=== PATIENT | female | born 1965 | race African-American/Black ===

== ENCOUNTER 2017-03-30 08:33 | Emergency (ER) | payer MEDICAID, SELFPAY ==
[2017-03-30 08:33] VITALS: BP 180/112; PULSE 79; RESP 18; TEMP 36.6; O2SAT 99; BMI 36.3
--- NOTE | 2017-03-30 08:56 | RAD_ITS ---
STUDY: X-RAY - RIGHT FOOT CLINICAL: Female, 51 years old. Pain following injury. TECHNIQUE: 3 view(s) of the foot. COMPARISON: None. FINDINGS: There is a plantar calcaneal spur. Normal visualized subtalar, talonavicular, calcaneocuboid, tarsal and tarsometatarsal articulations. There is evidence of a talar neck. Normal metatarsi. Normal metatarsophalangeal joint of the great toe. Normal tibial and fibular sesamoid bones. Normal interphalangeal joint of the great toe. Normal phalanges of the great toe. Normal second through fifth metatarsophalangeal joints. I suspect a nondisplaced avulsion fracture at the base of the middle phalanx of the fifth digit. Soft tissue swelling. Prior fixation of the distal fibular fracture. RAD/Foot min 3 Views IMPRESSION: I suspect a nondisplaced avulsion fracture at the base of the middle phalanx of the fifth toe. Electronically Signed: Jose Carlos Mcmanus MD at 9:52 EST Tel [phone], Service support ,
--- NOTE | 2017-03-30 08:57 | RAD_ITS ---
STUDY: X-RAY - RIGHT KNEE REASON FOR EXAM: Female, 51 years old. Pain following a fall. TECHNIQUE: 4 view(s) of the knee. COMPARISON: None. FINDINGS: Normal visualized distal femur. Normal visualized proximal tibia and fibula. Normal proximal tibiofibular articulation. There is mild degenerative arthrosis of the medial femorotibial compartment. There is mild degenerative arthrosis of the lateral femorotibial compartment. There is mild degenerative arthrosis of the patellofemoral articulation. The soft tissue structures are unremarkable. RAD/Knee 4 or More Views IMPRESSION: Degenerative arthrosis. Electronically Signed: Jose Carlos Mcmanus MD at 9:52 EST Tel [phone], Service support ,
--- NOTE | 2017-03-30 09:38 | ED.VISSUMM ---
- ER Visit Summary Date of Service: 03/30/17 Chief Complaint: [] History of Present Illness: The patient is a 51 F [] Physical Examination: [] Test Results: [] Emergency Department Course and Treatment: [] Treatment Plan: [] Disposition: [] Impression: [] This note was generated with [employer] dictation software. It may contain incorrect words, spelling, and punctuation that were not noted in review of the chart prior to signing ED Disposition - Plan for ED Patient: Chief Complaint: Fall Instructions: ED Fx Toe Closed Prescriptions: Naproxen [Naprosyn] 500 mg PO BID PRN #20 tablet Referrals: Vitor Hinton DO [Primary Care Provider] - 1-2 Weeks
--- NOTE | 2017-03-30 09:57 | ED.DCSUM_ITS ---
- ER Visit Summary Date of Service: 03/30/17 Chief Complaint: [] History of Present Illness: The patient is a 51 F [] Physical Examination: [] Test Results: [] Emergency Department Course and Treatment: [] Treatment Plan: [] Disposition: [] Impression: [] This note was generated with [employer] dictation software. It may contain incorrect words, spelling, and punctuation that were not noted in review of the chart prior to signing ED Disposition - Plan for ED Patient: Chief Complaint: Fall Instructions: ED Fx Toe Closed Prescriptions: Naproxen [Naprosyn] 500 mg PO BID PRN #20 tablet Referrals: Vitor Hinton DO [Primary Care Provider] - 1-2 Weeks
--- NOTE | 2017-03-30 10:00 | ED.VISSUMM ---
- ER Visit Summary Date of Service: 03/30/17 Chief Complaint: Right knee and right fifth toe pain History of Present Illness: The patient is a 51 F presenting with right knee and right fifth toe pain. She states that she fell this morning through a floor and landed on her right knee. She did not hit her head or lose consciousness. Denies back pain. Physical Examination: Mild tenderness at the base of the right fifth toe. Skin is intact. No deformity. No other foot tenderness. Mild tenderness right knee anteriorly but skin is intact and still has full range of motion. She has a superficial abrasion on the left midshaft forearm laterally but there is no bony tenderness and she has a normal distal neurovascular examination. Test Results: Right knee plain films negative for fracture. Right foot plain films revealed a nondisplaced avulsion fracture at the proximal phalange of the right fifth toe. Emergency Department Course and Treatment: He was placed in a postop shoe. Treatment Plan: Follow-up with her primary care physician. Disposition: Home in stable condition Impression: She will encounter right knee contusion, initial encounter nondisplaced closed right fifth toe fracture This note was generated with [employer] dictation software. It may contain incorrect words, spelling, and punctuation that were not noted in review of the chart prior to signing ED Disposition - Plan for ED Patient: Chief Complaint: Fall Instructions: ED Fx Toe Closed Prescriptions: Naproxen [Naprosyn] 500 mg PO BID PRN #20 tablet Referrals: Vitor Hinton DO [Primary Care Provider] - 1-2 Weeks
== END 2017-03-30 10:35 | disposition home or self-care (01) ==
LOC: ED 09:01
PROVIDERS: Emergency Provider Emergency Medicine; Family Provider Student in an Organized Health Care Education/Training Program; PCP Student in an Organized Health Care Education/Training Program
DX: S92.514A Nondisplaced fracture of proximal phalanx of right lesser toe(s), initial encounter for closed fracture (principal); S80.01XA Contusion of right knee, initial encounter; S50.812A Abrasion of left forearm, initial encounter; W13.3XXA Fall through floor, initial encounter; Y93.9 Activity, unspecified; Y92.9 Unspecified place or not applicable; Y99.9 Unspecified external cause status; I10 Essential (primary) hypertension; Z72.0 Tobacco use; Z79.899 Other long term (current) drug therapy; Z90.710 Acquired absence of both cervix and uterus
CPT/HCPCS: 73564; 73630; 99283

== ENCOUNTER 2017-05-02 10:21 | Emergency (ER) | payer MEDICAID, SELFPAY ==
[2017-05-02 10:25] VITALS: BP 195/104; PULSE 79; RESP 20; TEMP 36.6; O2SAT 100; BMI 38.9
--- NOTE | 2017-05-02 10:37 | EKG12_ITS ---
Test Reason : SOB Blood Pressure : / mmHG Vent. Rate : 074 BPM Atrial Rate : 074 BPM P-R Int : 190 ms QRS Dur : 090 ms QT Int : 426 ms P-R-T Axes : 012 019 -11 degrees QTc Int : 472 ms Normal sinus rhythm Normal ECG Confirmed by CRISTINO SOLIS, RACHEL ([id number]), editor in chief LEEROY VILLA ([id number]) on 05/03/2017 2:22:13 PM Referred By: YFN Confirmed By:RACHEL GREGG MD
--- NOTE | 2017-05-02 10:41 | ED.DCSUM_ITS ---
- ER Visit Summary Date of Service: 05/02/17 Chief Complaint: Abdominal pain History of Present Illness: The patient is a 51 F presenting with abdominal pain for approximately 1 month. She went to urgent care today and they sent her to the ED for further evaluation. She states she has had diarrhea for approximately 1 month. She states she took Imodium yesterday and diarrhea has since improved. She denies blood in her stool. She has had nausea, vomiting. She complains of epigastric abdominal pain which is worse with eating. Physical Examination: Vitals are stable. Patient is afebrile. Alert no acute distress. HEENT exam is unremarkable. Neck is supple. Lungs are clear and equal bilaterally. Heart is regular rate and rhythm. Abdomen is soft epigastric tenderness, no rebound or guarding. Extremities are unremarkable. Skin is warm and dry. No focal neurologic deficit. Remainder of exam is unremarkable. Emergency Department Course and Treatment: Patient was given a GI cocktail with improvement. CBC, chemistries unremarkable. Liver lipase are normal. Urinalysis is unremarkable. Troponin is negative. EKG is sinus rhythm rate is 74 with no acute changes. Patient is feeling improved following the GI cocktail. She is given a prescription for Pepcid. She is advised to follow-up with her primary care physician. Advised return to ED if worsening complaints. Disposition: Discharge home Impression: Abdominal pain This note was generated with [employer] dictation software. It may contain incorrect words, spelling, and punctuation that were not noted in review of the chart prior to signing ED Disposition - Plan for ED Patient: Chief Complaint: Abd Pain Instructions: ED Abdominal Pain Unkn Cause Prescriptions: Famotidine [Pepcid] 20 mg PO DAILY #30 tablet Referrals: Vitor Hinton DO [Primary Care Provider] -
--- NOTE | 2017-05-02 10:42 | NURSING ---
NO OLD EKGS
[2017-05-02] MEDS: 0.9% Normal Saline 1,000 ML 1000 ML IV (10:52)
[2017-05-02 11:08] LABS: Absolute Lymphocyte Count 1.89 X10^3/ul (0.83-4.51); Absolute Neutrophil Count 4.1 X10^3/uL (2.0-7.7); Bacteria 0 SEEN /hpf (None Seen); Basophil# 0.03 X10^3/uL; Basophil% 0.4 % (0-1); Eosinophil# 0.12 X10^3/uL; Eosinophils% 1.7 % (0-5); Hemoglobin 13.3 g/dl (12.0-15.0); Lymphocyte # 1.89 X10^3/ul (4.0); Mean Corp Hgb Conc 34.1 g/gl (32-36); Mean Corpuscular Hgb 33.5 pg (27.0-32.0); Mean Corpuscular Volume 98.2 fL (81-99); Mean Platelet Vol. 11.5 fl (6.2-12.0); Monocyte# 0.82 X10^3/uL; Monocyte% 11.7 % (0-10); Mucous, Urine 0 SEEN /hpf (<or=2+); Neutrophil # 4.13 X10^3/uL (2.7-7.7); Neutrophil % 59.1 % (47-70); Platelet Count 183 K/mm3 (150-450); RBC Distribution Width CV 12.9 % (11.6-14.6); RBC Distribution Width SD 45.1 fl (35.1-43.9); Red Blood Cells-Urine 0 SEEN /hpf (0-5); Red Blood Count 3.97 M/mm3 (4.2-5.4); White Blood Cells 0 SEEN /hpf (0-5)
[2017-05-02 11:09] LABS: POSITIVE COUNT NO; POSITIVE DIFFERENTIAL NO; POSITIVE MORPHOLOGY NO
[2017-05-02 11:10] LABS: Color, Urine Yellow (Yellow); Glucose, Dipstick Normal (Normal); Ketone-Dipstick Negative (Negative); Leukocyte Esterase-Dipstick Negative /ul (Negative); Nitrite-Dipstick Negative (Negative); Occult Blood-Urine Negative /ul (Negative); Protein-Dipstick Negative (Negative); Urine Bilirubin Dipstick Negative (Negative); Urine Clarity Clear (Clear); Urine Urobilinogen Normal (Normal); Urine pH 6.5 (5.0 - 8.0)
[2017-05-02 11:23] LABS: Squamous Epithelial Cells - UA 0-5 SEEN /hpf (5-10)
[2017-05-02 11:26] LABS: AST(SGOT) 15 U/L (15-37); Alanine Aminotransfer ALT/SGPT 17 U/L (13-56); Albumin, Serum 3.5 g/dL (3.2-5.0); Alkaline Phosphatase 91 U/L (45-117); Anion Gap 6 (5-15); BUN 10 mg/dL (7-18); Bilirubin, Direct 0.22 mg/dL (0.00-0.30); Calcium,Total 8.2 mg/dL (8.5-10.1); Chloride 105 mmol/L (98-107); Creatinine, Serum 0.91 mg/dL (0.55-1.02); EST Glomerular Filtration Rate 70 mL/min (>60); Est Glom Filt Rate - Afr Amer 84 mL/min (>60); Estimated Creatinine Clearance 78.15 ml/min; Globulin 4.5 g/dL (2.2-4.2); Glucose 83 mg/dL (74-106); Lipase 119 U/L (73-393); Potassium 3.5 mmol/L (3.5-5.1); Sodium Level 137 mmol/L (136-145)
--- NOTE | 2017-05-02 11:31 | ED.DEP ---
ED Disposition - Plan for ED Patient: Chief Complaint: Abd Pain Instructions: ED Abdominal Pain Unkn Cause Prescriptions: Famotidine [Pepcid] 20 mg PO DAILY #30 tablet Referrals: Vitor Hinton DO [Primary Care Provider] -
[2017-05-02 11:43] VITALS: BP 155/80; PULSE 80; RESP 14; O2SAT 99
== END 2017-05-02 11:44 | disposition home or self-care (01) ==
PROVIDERS: Emergency Provider Emergency Medicine; Family Provider Student in an Organized Health Care Education/Training Program; PCP Student in an Organized Health Care Education/Training Program
DX: R10.13 Epigastric pain (principal); R11.2 Nausea with vomiting, unspecified; R19.7 Diarrhea, unspecified; I10 Essential (primary) hypertension; J45.909 Unspecified asthma, uncomplicated; F41.9 Anxiety disorder, unspecified; E66.9 Obesity, unspecified; Z79.899 Other long term (current) drug therapy
CPT/HCPCS: 80048; 80076; 81001; 83690; 84484; 85025; 93005; 96360; 99283; J7030; A4216

== ENCOUNTER 2017-05-25 09:30 | Outpatient (RCR) | payer MEDICAID, SELFPAY ==
--- NOTE | 2017-04-20 16:31 | HP.PTEVAL_ITS ---
Patient's Visit Information RENEE DENT is a 51 year old F referred to Physical Therapy by Vitor WHEAT with a diagnosis of LUMBAR OA. Date of Evaluation: 04/20/17 Physical Therapist: Dasha Miller - Visit Plan Frequency: 2-3x /Week Duration: 4-6 Weeks Plan: *RECENT RIGHT 5TH DIGIT FX* AQUATIC THERAPY STARTING VERY SLOWLY FOR. POSTURE CORRECTION/STRENGTHENING, INSTRUCTION IN APPROPRIATE BODY MECHANICS AND ACTIVITY MODIFICATIONS. DLS STARTING WITH A NEUTRAL SPINE PROGRESSING ROM TOLERATED. KALI LE ROM, STRETCHING AND STRENGTHENING. HEP INSTRUCTION. 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 INVOLVES A LOT OF TWISTING AND BOUNCING. NORMALLY DOES NOT HAVE SPECIAL NEEDS CHILDREN. MISSED A WEEK OF WORK BUT BACK TO WORK NOW. Disability: NO. Present symptoms: KALI LOW BACK. PAIN IN THE RIGHT LATERAL LEG. FX OF RIGHT 5TH TOE WHICH SHE WAS IN A BOOT FOR 2.5 WEEKS. TOOK IT OFF TUESDAY (04/16/17) AND IT DOES NOT HURT IN HER SHOE. NO LITTLE TOE PAIN NOW. PATIENT ALSO HAS C/ O RIGHT KNEE PAIN. PATIENT DENIES KALI LE NUMBNESS AND TINGLING. Present since : ABOUT A MONTH AGO. Pain Scale: BACK: WORST 10/10, LEAST 3/10. RIGHT KNEE : WORST 4/10, LEAST 2/10. RIGHT LEG: WORST 2/10, LEAST 0/10. Currently: BACK: 5/10, RIGHT KNEE 3/10, RIGHT LEG 0/10. OVER-ALL, PATIENT REPORTS ALL OF HER PAIN IS GETTING BETTER. Commenced as a result of: FELL THOUGH THE FLOOR IN HER APPARTMENT BUILDING. WENT BACK TO WORK ABOUT 2 DAYS AFTER FOR 2 DAYS THEN OFF A WEEK. Symptoms at onset: RIGHT FOOT, LEG AND KNEE. BACK PAIN STARTED THE NEXT DAY. Worse: WALKING, LIFTING, CLIMBING STAIRS, DRIVING, STRETCHING, BENDING, GETTING UP TO MOVE, LYING DOWN AND REACHING. Better: SITTING, HEATING PAD,. Disturbed sleep: YES. Previous history/Previous treatment: UNREMARKABLE. PATIENT DENIES ANY PRIOR HISTORY OF BACK PROBLEMS EXCEPT THE OCCASSIONAL BACK ACHE. PATIENT REPORTS A HISTORY OF RIGHT ANKLE FRACTURE WITH ORIF 2 YEARS AGO. Coughing/sneezing/straining: NEGATIVE. Gait: PATIENT REPORTS SHE HAS TO WALK SLOW AND CAREFUL NOW. STATES SHE USE TO WALK LONG DISTANCES FOR EXERCISE. NOT USING ANY ASSISTIVE DEVICES. WALKS WITH A LIMP ON THE RIGHT LE. Difficulty initiating urinatin: NO. Accidents: FELL OVER DAUGHTER 2 YEARS AGO - SLIPPED ON WET FLOOR. Unexplained weight loss: NO. Imaging: BACK, RIGHT KNEE AND RIGHT FOOT X-RAYS. PATIENT REPORTS SHE HAS NO IDEA WHAT THE X-RAY RESULTS WERE. STATES THE DOCTOR JUST TOLD HER THAT THE FALL JUST IMFLAMMED ALL THE ARTHRITIS SHE ALREADY HAD EXCEPT SHE DID BREAK HER TOE. PMH: HTN AND CHRONIC KALI SHOULDER AND NECK PAIN INCREASED SINCE HYSTERECTOMY. LEFT ARM ABRASIONS. Recent major surgery: RIGHT ANKLE ORIF 2 YEARS AGO. AUGUST 2016 HYSTERECTOMY. - Objective Sitting Posture: POOR. Standing Posture: POOR. Lordosis: INCREASED. Lateral shift: NO. Relevant shift: NO. Active Correction of posture: WORSE. Other Observations: INDEP ANTALGIC SLOW GAIT INTO PT WITHOUT AD WITH MILD LIMP ON RIGHT LE. Motor deficit: KALI LE STRENGTH 5/5 WITH MMT EXCEPT HIPS GRADED 4/ 5. Sensory deficit: HYPERSENSATIVITY RIGHT LATERAL LEG COMPARED TO LEFT. ROM deficit: TIGHT HIP FLEXORS, HAMSTRINGS AND GASTROC SOLEUS COMPLEX'S WITH RIGHT ANKLE DYSFUNCTION FROM ORIF. Reflexes: KALI LE'S 2/3. Dural Signs: POSITIVE KALI LE DURAL SIGNS RIGHT > LEFT. Lumbar mvmt loss: flex - MOD. ext - JAIRO. R SG - MOD. L SG - MOD. PATIENT WITH C/O INCREASED PAIN WITH ROM TESTING INTO FLEX AND EXT GREATER THAN KALI SG'ING. Core strength: POOR. Palpation: TENDERNESS WITH PALPATION OF THE MID AND LOWER THORACIC SPINE AND L345 REGIONS DOWN INTO SACRAL AREA. NOT TENDER IN BUTTOCK OR HIP REGIONS. OTHER: CALLED AND SPOKE WITH ANGEL AT DR. CORONADO OFFICE TO REPORT THORACIC TENDERNESS. RECEIVED LUMBAR X-RAY RESULTS OF DEGENERATIVE CHANGES, MODERATE OSTEOPHYPE FORMATION AND NO FX'S. - Goals Goal 1:: DECREASE C/O LOW BACK AND RIGHT LE PAIN Goal Time Frame: 4-6 Weeks Goal 2:: IMPROVE BENDING, LIFTING, SITTING, STANDING, WALKING, SOCIAL LIFE, TRAVEL, SLEEP AND EMPLOYMENT/HOMEMAKING FUNCTION. Goal Time Frame: 4-6 Weeks Goal 3:: INSTRUCT IN PROPHYLAXIS Goal Time Frame: 4-6 Weeks - Rehabilitation Potential Rehabilitation Potential: Fair - Anticipated Interventions Patient/Client Instruction: Educate patient on: Condition, Plan of Care, Risk Factors, Benefits of Fitness Program For the Purpose of:: To improve self management Therapeutic Exercise to Include: Strength training, Body mechanics, Postural training, Flexibilty training, In an aquatic setting, Dynamic Lumbar Stabilization For the Purpose of:: To improve ability of physical actions for home/community/ work/leisure Thank you for the opportunity to evaluate your patient. For Medicare and Medicare HMO plans, please review the plan of care and approve it. It will need to be FAXED BACK to us at [phone] for Medicare purposes. Please let me know if there are questions or concerns regarding this plan of care. Physician Signature: Date:
--- NOTE | 2017-05-25 10:26 | HP.PTDCSUM ---
HP - PT D/C Summary It has been my pleasure to treat RENEE DENT under orders from DR.JGARRI Alexandro for the diagnosis of LUMBAR OA for a total of 9 visit(s). Discharge Date: 05/25/17 Please see the following information for a summary of their discharge status. - Subjective Subjective: PATIENT REPORTS SHE WAS ABLE TO TAKE A WALK AND DID SOME WEIGHT MACHINES AT THE [facility] THIS WEEK. REPORTS SHE IS A LOT BETTER NOW. 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 HAS A BIKE AT HOME AND DOES YOGA AT HOME TOO. AT FIRST PATIENT REPORTED FEELING 85 TO 90% BETTER THEN SHE STATED I REALLY FEEL 100% BETTER, I REALLY DO. - Pain RLE Pain Intensity (Out of 10): 0 Low Back Pain Intensity (Out of 10): 0 - Overall Improvement % Improvement: 100 - Objective Objective/Function: INDEP ANTALGIC GAIT INTO PT WITHOUT AD OR ANY DEVIATIONS NOTED. Motor deficit: KALI LE STRENGTH 5/5 WITH MMT. Sensory deficit: KALI LE LIGHT TOUCH SENSATION INTACT AND SYMMETRICAL WITHOUT REPORT OF HYPERSENSATIVITY RIGHT LATERAL LEG COMPARED TO LEFT. ROM deficit: KALI LE'S WFL AND NO C/O PAIN WITH TESTING. Reflexes: KALI LE'S 2/3. Dural Signs: NEGATIVE KALI LE DURAL SIGNS RIGHT > LEFT. Lumbar mvmt loss: flex - MIN. ext - MIN. R SG - NIL. L SG - NIL. PATIENT WITH SOME C/O INCREASED PAIN WITH ROM TESTING INTO FLEX AND EXT BUT NO GROSS DEVICATIONS NOTED. Core strength: FAIR WITH MUCH BETTER AWARENESS AND CONTROL OF POSTURE. PATIENT IS MOVING ARMS AND UPPER BODY FREELY IN CLINIC TODAY AND EVEN DOING A LITTLE DANCE WHILE HAPPILY REPORTING SHE KNEW ALL OF HER POOL EX'S FOR THE LAST THERAPIST. PATIENT COMMUNICATES A GOOD UNDERSTANDING OF ALL INSTRUCTIONS GIVEN. - Goals Goal 1:: DECREASE C/O LOW BACK AND RIGHT LE PAIN Goal 2:: IMPROVE BENDING, LIFTING, SITTING, STANDING, WALKING, SOCIAL LIFE, TRAVEL, SLEEP AND EMPLOYMENT/HOMEMAKING FUNCTION. Goal 3:: INSTRUCT IN PROPHYLAXIS - Plan Plan: D/C TO INDEP EX. PATIENT IS AGREEABLE. - D/C Information If there are questions or concerns regarding this patient's physical therapy, please feel free to call me at [phone]. Thank you for the referral of this patient. Sincerely, Dasha Miller
== END 2017-05-25 19:00 | disposition home or self-care (01) ==
LOC: PT 09:30
PROVIDERS: Family Provider Student in an Organized Health Care Education/Training Program; PCP Student in an Organized Health Care Education/Training Program; Visit Provider Student in an Organized Health Care Education/Training Program
DX: M47.816 Spondylosis without myelopathy or radiculopathy, lumbar region (principal)
CPT/HCPCS: 97113; 97162; 97530

== ENCOUNTER 2017-06-21 06:36 | Emergency (ER) | payer MEDICAID, SELFPAY ==
[2017-06-21 06:38] VITALS: BP 147/101; PULSE 84; RESP 16; TEMP 37.1; O2SAT 98; BMI 36.6
--- NOTE | 2017-06-21 06:45 | ED.VISSUMM ---
- ER Visit Summary Date of Service: 06/21/17 Chief Complaint: Left knee pain History of Present Illness: The patient is a 51 F with history of bilateral knee arthritis presents because she felt a lump behind her left knee. She had some pain and clicking in the area for the past few weeks. Over the past few days, she has noticed a small lump. She denies any change in gait. She denies any leg swelling. She has had no chest pain or shortness of breath. She denies any history of pulmonary embolus. Physical Examination: Patient does have palpable cyst in the popliteal fossa behind the knee. There is no erythema or edema. There are no palpable cords. Calves are not swollen. Pulses are normal. Extension is preserved. No gross laxity. Rest of exam unremarkable. Test Results: [] Emergency Department Course and Treatment: The patient has exam findings that are consistent with a Acosta's cyst. She has no asymmetric edema. She has no other symptoms that concern me for DVT. It is all localized in one area in the popliteal fossa. I do not feel that ultrasound is necessary. The patient be placed on a short burst of steroids. She will be given orthopedic follow-up. She will be discharged home. Treatment Plan: [] Disposition: Discharge Impression: 1. Acosta's cyst left knee This note was generated with [employer] dictation software. It may contain incorrect words, spelling, and punctuation that were not noted in review of the chart prior to signing ED Disposition - Plan for ED Patient: Chief Complaint: Wound Instructions: ED Cyst Acosta Prescriptions: Prednisone 10 mg PO UD #33 tab Referrals: Abhishek Dominique MD [STAFF PHYSICIAN] -
[2017-06-21] MEDS: predniSONE 20 MG Tablet 60 MG PO (06:53)
[2017-06-21 06:55] VITALS: BP 147/101; PULSE 84; RESP 16; O2SAT 98
== END 2017-06-21 06:56 | disposition home or self-care (01) ==
LOC: ED 06:46
PROVIDERS: Emergency Provider Emergency Medicine; Family Provider Student in an Organized Health Care Education/Training Program; PCP Student in an Organized Health Care Education/Training Program
DX: M71.22 Synovial cyst of popliteal space [Baker], left knee (principal); M17.0 Bilateral primary osteoarthritis of knee; I10 Essential (primary) hypertension; F41.9 Anxiety disorder, unspecified; Z79.899 Other long term (current) drug therapy
CPT/HCPCS: 99283

== ENCOUNTER 2019-03-01 10:58 | Emergency (ER) | payer MEDICAID, SELFPAY ==
[2019-03-01 10:59] VITALS: BP 134/83; PULSE 89; RESP 17; TEMP 36.9; O2SAT 99; BMI 42.3
--- NOTE | 2019-03-01 11:33 | ED.DCSUM_ITS ---
- ER Visit Summary Date of Service: 03/01/19 Chief Complaint: Abdominal pain History of Present Illness: The patient is a 53 F presenting with abdominal pain. She states this started on Tuesday. She complains of epigastric abdominal pain. She has associated nausea, vomiting, diarrhea. She denies blood in her stool. She also complains of dysuria. She denies fever. She was recently treated for H. pylori and finished a course of amoxicillin. She states she ate grits on [place] and since that time has had increasing pain. Denies chest pain or shortness of breath. Denies other complaints. Physical Examination: Vitals are stable. Patient is afebrile. Alert no acute distress. HEENT exam is unremarkable. Neck is supple. Lungs are clear and equal bilaterally. Heart is regular rate and rhythm. Abdomen is soft epigastric tenderness with no guarding or rebound Extremities are unremarkable. Skin is warm and dry. No focal neurologic deficit. Remainder of exam is unremarkable. Emergency Department Course and Treatment: Patient was given IV fluids, Zofran. CBC, CMP unremarkable. Liver lipase are normal. Urinalysis unremarkable. Patient was given a GI cocktail and feels much improved. She is given prescription for Pepcid and Zofran. She is advised to follow-up with her primary care physician. Advised return to ED for worsening complaints. Disposition: Discharge home Impression: Abdominal pain This note was generated with [employer] dictation software. It may contain incorrect words, spelling, and punctuation that were not noted in review of the chart prior to signing ED Disposition - Plan for ED Patient: Prescriptions: Famotidine [Pepcid] 20 mg PO BID #28 tab Transmission Status: Received by [facility]/pharmacy #[id number] Ondansetron [Zofran Odt] 4 mg PO Q8H PRN PRN #10 tab PRN Reason: Nausea Transmission Status: Received by [facility]/pharmacy #[id number] Referrals: Vitor Hinton DO [Primary Care Provider] -
[2019-03-01] MEDS: 0.9% Normal Saline 1,000 ML 1000 ML IV (11:34)
[2019-03-01] MEDS: Ondansetron 4 MG/2 ML Vial IV (11:35)
[2019-03-01 11:54] LABS: Absolute Lymphocyte Count 1.22 X10^3/uL (0.83-4.51); Absolute Neutrophil Count 5.2 X10^3/uL (2.0-7.7); Basophil# 0.04 X10^3/uL; Basophil% 0.6 % (0-1); Eosinophil# 0.05 X10^3/uL; Eosinophils% 0.7 % (0-5); Hematocrit 40.7 % (37-47); Hemoglobin 13.9 g/dL (12.0-15.0); Lymphocyte # 1.22 X10^3/ul (4.0); Lymphocyte % 17.1 % (19-41); Mean Corp Hgb Conc 34.2 g/dL (32-36); Mean Corpuscular Hgb 33.6 pg (27.0-32.0); Mean Corpuscular Volume 98.3 fL (81-99); Mean Platelet Vol. 11.2 fl (6.2-12.0); Monocyte# 0.64 X10^3/uL; NRBC Flagged by Analyzer 0 % (0-5); Neutrophil # 5.17 X10^3/uL (2.7-7.7); Neutrophil % 72.2 % (47-70); Platelet Count 217 K/mm3 (150-450); RBC Distribution Width CV 13.9 % (11.6-14.6); Red Blood Count 4.14 M/mm3 (4.2-5.4); White Blood Count 7.2 K/mm3 (4.4-11.0)
[2019-03-01 12:01] LABS: ALB/GLOB Ratio 0.9 RATIO (0.9-2.4); AST(SGOT) 15 U/L (15-37); Alanine Aminotransfer ALT/SGPT 22 U/L (13-56); Albumin, Serum 3.5 g/dL (3.2-5.0); Alkaline Phosphatase 102 U/L (45-117); Anion Gap 7 (5-15); BUN 12 mg/dL (7-18); BUN/Creat Ratio 11.9 RATIO (10-20); Calcium,Total 8.7 mg/dL (8.5-10.1); Chloride 103 mmol/L (98-107); Creatinine, Serum 1.01 mg/dL (0.55-1.02); EST Glomerular Filtration Rate 61 mL/min (>60); Est Glom Filt Rate - Afr Amer 74 mL/min (>60); Estimated Creatinine Clearance 66.47 ml/min; Globulin 4.1 g/dL (2.2-4.2); Glucose 128 mg/dL (74-106); Lipase 116 U/L (73-393); Potassium 3.2 mmol/L (3.5-5.1); Protein, Total 7.6 g/dL (6.4-8.2); Sodium Level 139 mmol/L (136-145)
[2019-03-01 12:11] LABS: Mucous, Urine 0 SEEN /hpf (<or=2+); Red Blood Cells-Urine 0 SEEN /hpf (0-5)
[2019-03-01 12:22] LABS: Color, Urine Yellow (Yellow); Glucose, Dipstick Normal (Normal); Ketone-Dipstick 5 mg/dl (Negative); Leukocyte Esterase-Dipstick 25 /ul (Negative); Nitrite-Dipstick Negative (Negative); Occult Blood-Urine Negative /ul (Negative); Protein-Dipstick Negative (Negative); Specific Gravity, Urine 1.025 (1.002-1.030); Urine Bilirubin Dipstick Negative (Negative); Urine Clarity Sl. Cloudy (Clear); Urine Urobilinogen Normal (Normal)
[2019-03-01 12:27] LABS: Bacteria RARE /hpf (None Seen); Squamous Epithelial Cells - UA 5-10 SEEN /hpf (5-10); White Blood Cells 0-5 SEEN /hpf (0-5)
[2019-03-01] MEDS: Mag Hydrox/Al Hydrox/Simeth 30 ML UDC PO (13:02)
--- NOTE | 2019-03-01 13:06 | ED.DEP ---
ED Disposition - Plan for ED Patient: Prescriptions: Famotidine [Pepcid] 20 mg PO BID #28 tablet Ondansetron [Zofran Odt] 4 mg PO Q8H PRN PRN #10 tablet PRN Reason: Nausea Referrals: Vitor Hinton DO [Primary Care Provider] -
== END 2019-03-01 13:28 | disposition home or self-care (01) ==
PROVIDERS: Emergency Provider Emergency Medicine; Family Provider Student in an Organized Health Care Education/Training Program; PCP Student in an Organized Health Care Education/Training Program
DX: R10.13 Epigastric pain (principal); R11.2 Nausea with vomiting, unspecified; R19.7 Diarrhea, unspecified; R30.0 Dysuria; K21.9 Gastro-esophageal reflux disease without esophagitis; Z72.0 Tobacco use; Z79.899 Other long term (current) drug therapy
CPT/HCPCS: 80053; 81001; 83690; 85025; 96361; 96374; 99284; J7030; A4216; J2405

== ENCOUNTER → 2019-12-17 09:17 | Emergency (ER) | payer MEDICAID, SELFPAY ==
[2019-12-17 09:18] VITALS: BP 148/101; PULSE 78; RESP 17; TEMP 36.2; O2SAT 100; BMI 39.9
--- NOTE | 2019-12-17 09:33 | ED.VIS.GEN ---
History of Present Illness Chief Complaint: General Illness Informant: Patient Narrative: Patient states that on Tuesday night she went to a constitution party. She drank a lot of beer and believes that she got a yeast infection from the yeast in the beer. She notes vaginal itching. She states that she vomited that night after the constitution party and had sore throat. She notes generalized myalgias and a decrease in her smell and taste. 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 She denies any fevers but does note a cough with mild clear phlegm (like saliva). She has a history of asthma but states she is not wheezing. Past Medical History - Allergies and Home Meds Allergies/Adverse Reactions: Allergies amlodipine Allergy (Verified 12/17/19 09:17) Swelling bupropion [From Wellbutrin] Allergy (Verified 12/17/19 09:17) Unknown Primary Care Physician: Vitor Hinton DO [Primary Care Provider] - Past Medical History: - - Asthma Surgical History: hysterectomy Smoking Status: Current every day smoker Alcohol: Occasional Drugs: None Review of Systems General: Reports: Chills, Malaise. Denies: Fever, Sweats Eyes: Denies: Visual changes - bilaterally, Diplopia ENT: Denies: Rhinorrhea, Sore throat Cardiovascular: Denies: Chest pain, Palpitations Respiratory: Reports: Cough. Denies: Dyspnea, Dyspnea on exertion Gastrointestinal: Denies: Abdominal pain, Nausea, Vomiting, Diarrhea, Melena, Hematochezia Genitourinary: Reports: - - Vaginal itching. Denies: Dysuria, Hematuria, Frequency Musculoskeletal: Reports: Myalgias. Denies: Back pain, Extremity Pain Skin: Denies: Rash, Wounds Neurological: Denies: Headache, Weakness, Numbness Physical Exam Vital Signs/Narrative: Vital Signs Temp Pulse Resp BP Pulse Ox 12/17/19 09:18 97.2 F L 78 17 148/101 H 100 Inital Vital Signs reviewed: Yes General: Well nourished, Well developed, No Acute Distress Head: Normocephalic, Atraumatic Eyes: Perrl, EOMI ENT: Moist mucous membranes, No rhinorrhea Neck: Supple, Nontender Cardiovascular: Regular rate, Regular rhythm, No murmurs Respiratory: No distress, CTA bilaterally, Chest nontender Abdomen: Soft, Nontender, Nondistended, Normal bowel sounds Back: Nontender, Normal Inspection Extremities: Nontender, No edema Skin: Normal color, No rash Neurological: Alert, Oriented x3, Cranial nerves II-XII grossly intact, Normal Strength, Normal Sensation Psychological: Normal affect, Normal Mood Diagnostic/Tx/Re-eval - Medical Decision Making She will be given a Diflucan. We will swab her for COVID-19. She is to self isolate until her results are back or cleared by health department. I will write her a note for work. Tylenol Motrin for body aches. Recommend rest and fluid hydration. ED Disposition - Plan for ED Patient: Disposition: Home or Assisted Living Diagnosis: Vaginal yeast infection, Viral syndrome Instructions: ED KIERRA VAGINITIS, ED Viral Syndrome Referrals: Vitor Hinton DO [Primary Care Provider] - As Needed
[2019-12-17] MEDS: Fluconazole 100 MG Tablet 200 MG PO (09:51)
== END | disposition home or self-care (01) ==
PROVIDERS: Emergency Provider Emergency Medicine; PCP Student in an Organized Health Care Education/Training Program
DX: B34.9 Viral infection, unspecified (principal); Z20.828 Contact with and (suspected) exposure to other viral communicable diseases; B37.3 Candidiasis of vulva and vagina; M79.10 Myalgia, unspecified site; J45.909 Unspecified asthma, uncomplicated; F17.200 Nicotine dependence, unspecified, uncomplicated; Z79.899 Other long term (current) drug therapy
CPT/HCPCS: 87635; 99282; U0003

== ENCOUNTER 2020-02-14 17:26 | Emergency (ER) | payer MEDICAID, SELFPAY ==
[2019-12-17 09:18] VITALS: BMI 39.9
[2020-02-14 17:27] VITALS: BP 134/89; PULSE 97; RESP 20; TEMP 36.9; O2SAT 96; BMI 40.8
--- NOTE | 2020-02-14 17:56 | EKG12_ITS ---
Test Reason : CP Blood Pressure : / mmHG Vent. Rate : 095 BPM Atrial Rate : 095 BPM P-R Int : 186 ms QRS Dur : 132 ms QT Int : 422 ms P-R-T Axes : 052 -10 012 degrees QTc Int : 530 ms Normal sinus rhythm Right bundle branch block Abnormal ECG Confirmed by ADELINE SOLIS, GOLDEN ([id number]), publishing editor DANAY RODRIGUEZ ([id number]) on 02/20/2020 9:44:55 A M Referred By: Confirmed By:SUMAN LR MD
--- NOTE | 2020-02-14 18:00 | RAD_ITS ---
STUDY: X-RAY CHEST REASON FOR EXAM: Female, 54 years old. CHEST TIGHTNESS, BILATERAL LEG PAIN. TECHNIQUE: Single AP portable view of the chest. COMPARISON: None. FINDINGS: The lungs are clear and expanded. There is no demonstrated pleural abnormality. Normal size heart. Normal mediastinum and abdoulaye. Normal visualized pulmonary arteries. Normal visualized aortic arch and descending thoracic aorta. Normal visualized thoracic spine. Normal visualized ribs, clavicles, and shoulders. There is no demonstrated abnormality of the visualized soft tissue structures of the upper abdomen. RAD/Chest 1 View (Portable) IMPRESSION: Normal x-ray examination of the chest. Electronically Signed: Amado Estrada MD at 18:20 EST , Service support ,
--- NOTE | 2020-02-14 18:02 | ED.VISSUMM ---
- ER Visit Summary Date of Service: 02/14/20 Chief Complaint: Chest pain History of Present Illness: The patient is a 54 F presenting with chest pain. She states that this started around 1 PM, 4 hours prior to arrival. She was at her doctor's office today for bilateral knee pain and arthritis. She mentioned to them that she was having chest pain. They called EMS for evaluation in the emergency department. She was given 4 aspirin and nitro per EMS. Following nitro her pain is now resolved. She denies shortness of breath, nausea, diaphoresis. Denies PE/DVT risk factors. Denies recent exposure to Covid. She has history of hypertension, family history of early heart disease, and smoking. Physical Examination: Vitals are stable. Patient is afebrile. Alert no acute distress. HEENT exam is unremarkable. Neck is supple. Lungs are clear and equal bilaterally. Heart is regular rate and rhythm. Abdomen is soft nontender nondistended. Extremities bilateral medial knee tenderness with active full range of motion. No calf tenderness. Skin is warm and dry. No focal neurologic deficit. Remainder of exam is unremarkable. Emergency Department Course and Treatment: Patient was given aspirin per EMS. EKG is sinus rhythm right bundle branch block rate of 95. Chest x-ray was interpreted by myself and radiology as normal x-ray examination of the chest. CBC, chemistries show potassium 2.9, glucose 146. She was given potassium oral replacement. Troponin is negative. D-dimer negative. She continues to be chest pain-free in the emergency department. Recommend admission for stress test due to multiple risk factors. Patient states she has a child at home and is unable to stay in the hospital overnight. She declined delta troponin and admission. She will sign out AGAINST MEDICAL ADVICE. She is advised risks of OH, permanent heart damage, and . Patient understands and will sign out AGAINST MEDICAL ADVICE. She will follow-up with her primary care physician. Advised return to the ED for any worsening complaints. Disposition: Left AGAINST MEDICAL ADVICE Impression: Chest pain This note was generated with [employer] dictation software. It may contain incorrect words, spelling, and punctuation that were not noted in review of the chart prior to signing ED Disposition - Plan for ED Patient: Instructions: ED Chest Pain, Uncertain Cause Referrals: Vitor Hinton DO [Primary Care Provider] -
[2020-02-14 18:21] LABS: D-Dimer Quantitative (DVT/PE) 0.31 FEU/ug/m (0.27-0.49)
[2020-02-14 18:27] LABS: Anion Gap 8 (5-15); BUN 16 mg/dL (7-18); BUN/Creat Ratio 16.3 RATIO (10-20); Calcium,Total 8.9 mg/dL (8.5-10.1); Chloride 101 mmol/L (98-107); Creatinine, Serum 0.98 mg/dL (0.55-1.02); EST Glomerular Filtration Rate 63 mL/min (>60); Est Glom Filt Rate - Afr Amer 76 mL/min (>60); Estimated Creatinine Clearance 70.18 ml/min; Glucose 146 mg/dL (74-106); Potassium 2.9 mmol/L (3.5-5.1); Sodium Level 138 mmol/L (136-145)
[2020-02-14 18:35] LABS: Absolute Lymphocyte Count 2.37 X10^3/uL (0.83-4.51); Absolute Neutrophil Count 4.9 X10^3/uL (2.0-7.7); Basophil# 0.02 X10^3/uL; Basophil% 0.2 % (0-1); Eosinophil# 0.07 X10^3/uL; Eosinophils% 0.9 % (0-5); Hematocrit 41.1 % (37-47); Hemoglobin 13.9 g/dL (12.0-15.0); Lymphocyte # 2.37 X10^3/ul (4.0); Lymphocyte % 29.2 % (19-41); Mean Corp Hgb Conc 33.8 g/dL (32-36); Mean Corpuscular Hgb 34.3 pg (27.0-32.0); Mean Corpuscular Volume 101.5 fL (81-99); Monocyte# 0.78 X10^3/uL; Monocyte% 9.6 % (0-10); NRBC Flagged by Analyzer 0 % (0-5); Neutrophil # 4.87 X10^3/uL (2.7-7.7); Neutrophil % 59.9 % (47-70); Platelet Count 249 K/mm3 (150-450); RBC Distribution Width CV 13.5 % (11.6-14.6); RBC Distribution Width SD 50.4 fl (35.1-43.9); Red Blood Count 4.05 M/mm3 (4.2-5.4); White Blood Count 8.1 K/mm3 (4.4-11.0)
[2020-02-14 18:44] VITALS: BP 136/94; PULSE 90; RESP 19; O2SAT 98
--- NOTE | 2020-02-14 19:07 | ED.DEP ---
ED Disposition - Plan for ED Patient: Instructions: ED Chest Pain, Uncertain Cause Referrals: Vitor Hinton DO [Primary Care Provider] -
[2020-02-14 19:22] VITALS: BP 137/86; PULSE 97; RESP 15; O2SAT 97
--- NOTE | 2020-02-14 19:23 | ED.RN ---
PT A+OX4 GIVEN WRITTEN AND VERBAL DISCHARGE INSTRUCTIONS. DR. COULTER AT BEDSIDE TO EDUCATED AND HAVE PT SIGN AMA FORM. THIS RN WITNESSES. PT VERBALIZES UNDERSTANDING OF D/C INSTRUCTIONS AND AMA PAPERWORK. PT DENIES ANY FURTHER QUESTIONS. PT TO FOLLOW UP WITH DR. BURTON. PT IV D/C AND COVERED WITH 2X2 GAUZE AND PAPER TAPE. PT DRESSES SELF AND AMBULATES OUT OF DEPARTMENT BY SELF.
== END 2020-02-14 19:27 | disposition left against medical advice (07) ==
LOC: ED 17:45
PROVIDERS: Emergency Provider Emergency Medicine; PCP Student in an Organized Health Care Education/Training Program
DX: R07.89 Other chest pain (principal); Z53.29 Procedure and treatment not carried out because of patient's decision for other reasons; I45.10 Unspecified right bundle-branch block; I10 Essential (primary) hypertension; K21.9 Gastro-esophageal reflux disease without esophagitis; F17.200 Nicotine dependence, unspecified, uncomplicated; Z82.49 Family history of ischemic heart disease and other diseases of the circulatory system; Z79.899 Other long term (current) drug therapy
CPT/HCPCS: 71045; 80048; 84484; 85025; 85379; 93005; 99285

== ENCOUNTER 2022-09-24 17:22 | Inpatient (IN) | payer MEDICAID, SELFPAY ==
[2022-09-24 17:24] VITALS: BP 126/94; PULSE 95; RESP 16; TEMP 36.2; O2SAT 99; BMI 33.3
--- NOTE | 2022-09-24 18:48 | EX.ED.DYSGE1 ---
HPI <CONCHA Stevens - Last Filed: 09/24/22 19:54> History of Present Illness Chief Complaint: Substance Abuse Narrative Narrative: Patient presenting today requesting to detox from alcohol. She reports that she has drank daily for the past several years. She reports that she drinks liquor and will usually pour several shots and mix it with pop and will have at least 2 or more of those per night. On the weekends she reports that she will drink at least 1 bottle of liquor, sometimes more. Also reports she will drink a few beers per day and several more on the weekend. She has never had a withdrawal seizure. She has never tried to detox before. She denies any other substance use. She last drank earlier today. PMH includes hypertension and anxiety. PFSH <CONCHA Stevens - Last Filed: 09/24/22 19:54> PFSH Medical History Alcohol abuse Allergic rhinitis Anxiety and depression Asthma HTN (hypertension) Obesity Tobacco use Home Medications citalopram 40 mg tablet 40 mg PO DAILY depression 10/14/16 [History Last Taken 02/14/20] cholecalciferol (vitamin D3) 125 mcg (5,000 unit) disintegrating tablet 5,000 unit PO DAILY supplement 05/02/17 [History Last Taken 02/14/20] alprazolam 0.5 mg tablet 0.5 mg PO BID PRN PRN Anxiety 02/14/20 [History Last Taken 02/09/20] bupropion HCl 150 mg 24 hr tablet, extended release 150 mg PO DAILY smoking 02/14/20 [History Last Taken 02/13/20] chlorthalidone 25 mg tablet 25 mg PO DAILY bp 02/14/20 [History Last Taken 02/14/20] cyclobenzaprine 10 mg tablet 10 mg PO TID PRN Spasms 02/14/20 [History Last Taken 02/13/20] diclofenac sodium 1 % topical gel 1 applic TP QHS arthritis 02/14/20 [History Last Taken 02/13/20] fexofenadine 180 mg tablet 180 mg PO DAILY allergies 02/14/20 [History Last Taken 02/13/20] valsartan 80 mg tablet 80 mg PO DAILY bp 02/14/20 [History Last Taken 02/14/20] Allergy/AdvReac Type Severity Reaction Status Date / Time amlodipine Allergy Swelling Verified 09/24/22 17:24 bupropion [From Wellbutrin] Allergy Unknown Verified 09/24/22 17:24 Family History (Updated 09/24/22 @ 21:[address] Juana Molina MD) Mother CVA (cerebral vascular accident) Heart disease Hypertension Alcoholism Sister Diabetes Alcoholism Father Alcoholism Uncle Alcoholism Surgical History (Updated 09/24/22 @ 21:[address] Junaa Molina MD) History of ankle surgery History of bilateral carpal tunnel release History of hysterectomy S/P Social History (Updated 09/24/22 @ 21:[address] Juana Molina MD) household members: other details: Lives at home, her 13 year old daughter lives with her. Smoking Status: Current every day smoker tobacco type: cigarettes Smoking packs per day: 1 Smoking cigarettes per day: 20.0 quit status: considering quitting alcohol intake: current alcohol intake frequency: 3 or more drinks per day details: Drinks at least 3 small bottles crown daily. substance use type: does not use ROS <CONCHA Stevens - Last Filed: 09/24/22 19:54> ROS ED Constitutional Constitutional ED: Denies chills or fever(s) Cardiovascular Cardiovascular: Denies chest pain Respiratory/Chest Respiratory/Chest: Denies cough or dyspnea Gastrointestinal Gastrointestinal: Denies abdominal pain, nausea or vomiting Genitourinary Genitourinary ED: Denies dysuria, hematuria or urinary urgency Musculoskeletal Musculoskeletal: Denies arthralgias or myalgias Integumentary Denies rash Neurologic Neurologic: Denies weakness Psychiatric Psychiatric: Denies anxiety, depression, suicidal ideation or suicidal thoughts EXAM <CONCHA Stevens - Last Filed: 09/24/22 19:54> Physical Exam Const Vital Signs: 09/24/22 17:24 Temperature 97.1 F L Temperature Source Temporal Pulse Rate 95 Respiratory Rate 16 Blood Pressure 126/94 H Blood Pressure Mean 104 Pulse Ox 99 Oxygen Delivery Method Room Air Positive well nourished, well developed and no apparent distress General Appearance ED: well developed HEENT Reports normocephalic and head/scalp atraumatic Mouth ED: Yes moist mucous membranes normal Eyes PERRL and EOMs intact bilaterally Neck full ROM and supple Chest Wall inspection of chest normal Resp normal respiratory effort and clear to auscultation bilaterally Cardio regular rate and regular rhythm GI soft to palpation, non-tender, non-distended and no masses Back/Spine normal ROM and normal to inspection Extremity normal to inspection and full ROM Neuro oriented x3, CN's II-XII intact bilaterally, moves all extremities, no focal motor deficits and no sensory deficits noted Sensorium / Orientation: awake and alert Psych mental status grossly normal and thought process normal Skin no rashes or lesions noted and no wounds <Dr. Roxane Ramírez DO - Last Filed: 09/24/22 23:19> Physical Exam Const Vital Signs: 09/24/22 17:24 Temperature 97.1 F L Temperature Source Temporal Pulse Rate 95 Respiratory Rate 16 Blood Pressure 126/94 H Blood Pressure Mean 104 Pulse Ox 99 Oxygen Delivery Method Room Air MDM <CONCHA Stevens - Last Filed: 09/24/22 19:54> MDM MDM Narrative Medical decision making narrative: Patient presenting today requesting to detox from alcohol. She is a daily drinker. She is unable to tell me exactly how much she drinks daily but reports that she will have several mixed drinks that have 2 or more shots of liquor inside of them daily as well as a few beers per day and will drink at least 1-2 bottles of liquor and several beers on the weekends. No history of withdrawal seizures. Last drink today. She is well-appearing and in no acute distress. She does not feel she is withdrawing at this time. I did speak with the hospitalist regarding admission and patient will be admitted in stable condition and is comfortable with plan. Lab Data Attestation: I reviewed the patient's lab results. Labs: Laboratory Results - last 24 hr 09/24/22 09/24/22 18:55 19:10 WBC 7.9 RBC 4.18 L Hgb 14.4 Hct 41.8 MCV 100.0 H MCH 34.4 H MCHC 34.4 RDW Std Deviation 49.2 H RDW Coeff of Casey 13.4 Plt Count 266 MPV 10.9 Immature Gran % (Auto) 0.100 Neut % (Auto) 52.1 Lymph % (Auto) 36.8 Vance % (Auto) 10.1 H Eos % (Auto) 0.5 Baso % (Auto) 0.4 Absolute Neuts (auto) 4.1 Absolute Lymphs (auto) 2.92 Nucleated RBC % 0 Sodium 139 Potassium 2.6 L* Chloride 102 Carbon Dioxide 27.0 Anion Gap 10 BUN 11 Creatinine 0.90 Estim Creat Clear Calc 74.68 Est GFR (MDRD) Af Amer 84 Est GFR (MDRD) Non-Af 70 BUN/Creatinine Ratio 12.3 Glucose 101 Calcium 9.9 Phosphorus 2.5 Magnesium 2.1 Total Bilirubin 0.40 AST 24 ALT 23 Alkaline Phosphatase 124 H Total Protein 8.3 H Albumin 3.9 Globulin 4.4 H Albumin/Globulin Ratio 0.9 Serum , Qual NEGATIVE Urine Opiates Screen NEGATIVE Urine Methadone Screen NEGATIVE Ur Barbiturates Screen NEGATIVE Ur Phencyclidine Scrn NEGATIVE Ur Amphetamines Screen NEGATIVE MDMA (Ecstasy) Screen POSITIVE H U Benzodiazepines Scrn NEGATIVE Urine Cocaine Screen NEGATIVE U Cannabinoids Screen NEGATIVE Ur Drug Screen Comment Ethyl Alcohol 68.0 <Dr. Roxane Ramírez, DO - Last Filed: 09/24/22 23:19> [facility] MDM Narrative Medical decision making narrative: Patient presenting today requesting to detox from alcohol. She is a daily drinker. She is unable to tell me exactly how much she drinks daily but reports that she will have several mixed drinks that have 2 or more shots of liquor inside of them daily as well as a few beers per day and will drink at least 1-2 bottles of liquor and several beers on the weekends. No history of withdrawal seizures. Last drink today. She is well-appearing and in no acute distress. She does not feel she is withdrawing at this time. I did speak with the hospitalist regarding admission and patient will be admitted in stable condition and is comfortable with plan. I have personally performed a face to face assessment of the patient and have reviewed the HEATHER Note. I performed a substantive portion of the visit including all aspects of the following. My salazar findings include: History is Patient is a 56-year-old female presenting from home for request of alcohol detox. Patient states she drinks liquor at home. She does report a history of chronic hyponatremia. She has never been through detox and has tried stopping drinking on her own but was unsuccessful which is why she came here. She has no physical complaints at this time. Her potassium today is 2.6, magnesium is added on she is given oral potassium replacement the ER. She will be admitted to our [facility] program for inpatient alcohol detox. Is agreeable with this. Other additions or changes: [None] Lab Data Labs: Laboratory Results - last 24 hr 09/24/22 09/24/22 18:55 19:10 WBC 7.9 RBC 4.18 L Hgb 14.4 Hct 41.8 MCV 100.0 H MCH 34.4 H MCHC 34.4 RDW Std Deviation 49.2 H RDW Coeff of Casey 13.4 Plt Count 266 MPV 10.9 Immature Gran % (Auto) 0.100 Neut % (Auto) 52.1 Lymph % (Auto) 36.8 Vance % (Auto) 10.1 H Eos % (Auto) 0.5 Baso % (Auto) 0.4 Absolute Neuts (auto) 4.1 Absolute Lymphs (auto) 2.92 Nucleated RBC % 0 Sodium 139 Potassium 2.6 L* Chloride 102 Carbon Dioxide 27.0 Anion Gap 10 BUN 11 Creatinine 0.90 Estim Creat Clear Calc 74.68 Est GFR (MDRD) Af Amer 84 Est GFR (MDRD) Non-Af 70 BUN/Creatinine Ratio 12.3 Glucose 101 Calcium 9.9 Phosphorus 2.5 Magnesium 2.1 Total Bilirubin 0.40 AST 24 ALT 23 Alkaline Phosphatase 124 H Total Protein 8.3 H Albumin 3.9 Globulin 4.4 H Albumin/Globulin Ratio 0.9 Serum , Qual NEGATIVE Urine Opiates Screen NEGATIVE Urine Methadone Screen NEGATIVE Ur Barbiturates Screen NEGATIVE Ur Phencyclidine Scrn NEGATIVE Ur Amphetamines Screen NEGATIVE MDMA (Ecstasy) Screen POSITIVE H U Benzodiazepines Scrn NEGATIVE Urine Cocaine Screen NEGATIVE U Cannabinoids Screen NEGATIVE Ur Drug Screen Comment Ethyl Alcohol 68.0 Discharge Plan Dx/Rx/DC Orders Clinical Impression: Desire for detoxification, Alcohol abuse, Acute hypokalemia Disposition Disposition: Acute Care Hospital [facility]
[2022-09-24 19:22] LABS: Absolute Lymphocyte Count 2.92 X10^3/uL (0.83-4.51); Absolute Neutrophil Count 4.1 X10^3/uL (2.0-7.7); Basophil# 0.03 X10^3/uL; Basophil% 0.4 % (0-1); Eosinophil# 0.04 X10^3/uL; Eosinophils% 0.5 % (0-5); Hematocrit 41.8 % (37-47); Hemoglobin 14.4 g/dL (12.0-15.0); Lymphocyte # 2.92 X10^3/ul (0.83-4.51); Lymphocyte % 36.8 % (19-41); Mean Corp Hgb Conc 34.4 g/dL (32-36); Mean Corpuscular Hgb 34.4 pg (27.0-32.0); Mean Platelet Vol. 10.9 fl (6.2-12.0); Monocyte% 10.1 % (0-10); NRBC Flagged by Analyzer 0 % (0-5); Neutrophil # 4.13 X10^3/uL (2.7-7.7); Neutrophil % 52.1 % (47-70); Platelet Count 266 K/mm3 (150-450); RBC Distribution Width CV 13.4 % (11.6-14.6); RBC Distribution Width SD 49.2 fl (35.1-43.9); Red Blood Count 4.18 M/mm3 (4.2-5.4); White Blood Count 7.9 K/mm3 (4.4-11.0)
[2022-09-24 19:30] LABS: Internal QC Validated? YES +Cl - CLEAR BKGD; Pregnancy, Serum, hCG Quali. NEGATIVE Negative
[2022-09-24 19:33] LABS: Amphetamine Urine VISTA NEGATIVE (<1000 ng/mL); Barbiturate Urine VISTA NEGATIVE (< 200 ng/mL); Benzodiazepine Urine VISTA NEGATIVE (< 200 ng/mL); Cocaine Urine VISTA NEGATIVE (< 300 ng/mL); Ecstacy Urine VISTA POSITIVE (< 500 ng/mL); Methadone Urine VISTA NEGATIVE (< 300 ng/mL); PCP Urine VISTA NEGATIVE (< 25 ng/mL); THC Urine VISTA NEGATIVE (< 50 ng/mL); Vista UDS pH Range 6
--- NOTE | 2022-09-24 19:33 | HP.PCM.HOS_ITS ---
HPI - General General Date of Admission: 09/24/22 Date of Service: 09/24/22 Chief Complaint: EtOH abuse, withdrawal, detox request. HPI Narrative The patient is 56 y/o F w/ PMHx: Asthma, Tobacco use, Obesity, HTN, Anxiety and Depression, Allergic rhinitis, EtOH abuse who presents to the [facility] ED on 09/24/22 with history of onset of acute alcohol withdrawal following her last alcohol intake earlier in the day primarily secondary to anxiety with coming in with significant strong family history of alcohol abuse with reported mild nausea, mild tremors, restlessness and tactile disturbances prompting eventual ED evaluation. She is very interested in obtaining sober status. Work-up in the ED included T98.3, heart 71, BP 136/95, respiratory rate 18, 98% on room air, CBC with WC 7.9, hemoglobin 14.4, platelet 266 without marked shift, CMP with potassium 2.6, hepatic profile with alk phos 124 otherwise not marked appearing, serum test negative, UDS with positive MDMA screen, ethyl alcohol 68. In the ED patient ministered potassium chloride 40 mill equivalent p.o. x1. [facility] Medical History Alcohol abuse Allergic rhinitis Anxiety and depression Asthma HTN (hypertension) Obesity Tobacco use Home Medications citalopram 40 mg tablet 40 mg PO DAILY depression 10/14/16 [History Last Taken 02/14/20] cholecalciferol (vitamin D3) 125 mcg (5,000 unit) disintegrating tablet 5,000 unit PO DAILY supplement 05/02/17 [History Last Taken 02/14/20] alprazolam 0.5 mg tablet 0.5 mg PO BID PRN PRN Anxiety 02/14/20 [History Last Taken 02/09/20] bupropion HCl 150 mg 24 hr tablet, extended release 150 mg PO DAILY smoking 02/14/20 [History Last Taken 02/13/20] chlorthalidone 25 mg tablet 25 mg PO DAILY bp 02/14/20 [History Last Taken 02/14/20] cyclobenzaprine 10 mg tablet 10 mg PO TID PRN Spasms 02/14/20 [History Last Taken 02/13/20] diclofenac sodium 1 % topical gel 1 applic TP QHS arthritis 02/14/20 [History Last Taken 02/13/20] fexofenadine 180 mg tablet 180 mg PO DAILY allergies 02/14/20 [History Last Taken 02/13/20] valsartan 80 mg tablet 80 mg PO DAILY bp 02/14/20 [History Last Taken 02/14/20] Allergy/AdvReac Type Severity Reaction Status Date / Time amlodipine Allergy Swelling Verified 09/24/22 17:24 bupropion [From Wellbutrin] Allergy Unknown Verified 09/24/22 17:24 Family History (Updated 09/24/22 @ 21:[address] Juana Molina MD) Mother CVA (cerebral vascular accident) Heart disease Hypertension Alcoholism Sister Diabetes Alcoholism Father Alcoholism Uncle Alcoholism Surgical History (Updated 09/24/22 @ 21:[address] Juana Molina MD) History of ankle surgery History of bilateral carpal tunnel release History of hysterectomy S/P Social History (Updated 09/24/22 @ 21:[address] Juana Molina MD) household members: other details: Lives at home, her 13 year old daughter lives with her. Smoking Status: Current every day smoker tobacco type: cigarettes Smoking packs per day: 1 Smoking cigarettes per day: 20.0 quit status: considering quitting alcohol intake: current alcohol intake frequency: 3 or more drinks per day details: Drinks at least 3 small bottles crown daily. substance use type: does not use ROS ROS Narrative Admission Review of Systems: CONSTITUTIONAL: No weight loss, fever, chills, + weakness or fatigue. HEENT: Eyes: No visual loss, blurred vision, double vision or yellow sclerae. Ears, Nose, Throat: No hearing loss, sneezing, congestion, runny nose or sore throat. SKIN: No rash or itching, lesions, wounds. CARDIOVASCULAR: No chest pain, chest pressure or chest discomfort, palpitations, edema, orthopnea, syncopal events. RESPIRATORY: No shortness of breath, cough or sputum, wheezing, hemoptysis. GASTROINTESTINAL: + anorexia, nausea. No vomiting or diarrhea, abdominal pain, melena, BRBPR. GENITOURINARY: No dysuria, frequency, urgency or retention. NEUROLOGICAL: + Mild tremors, mild tactile disturbances. No headache, dizziness, syncope, paralysis, ataxia, numbness or tingling in the extremities, focal weakness, change in bowel or bladder control, seizure. MUSCULOSKELETAL: + muscle, back pain, joint pain or stiffness. HEMATOLOGIC: No anemia, bleeding or bruising. LYMPHATICS: No enlarged nodes. No history of splenectomy. PSYCHIATRIC: + history of depression or anxiety. ENDOCRINOLOGIC: No reports of sweating, cold or heat intolerance. No polyuria or polydipsia. ALLERGIES: + history of asthma, rhinitis. Vital Signs Vital Signs Vital Signs: 09/24/22 17:24 Temperature 97.1 F L Temperature Source Temporal Pulse Rate 95 Respiratory Rate 16 Blood Pressure 126/94 H Blood Pressure Mean 104 Pulse Ox 99 Oxygen Delivery Method Room Air Weight Weight: 225 lb 3.2 oz Body Mass Index (BMI) 33.3 Physical Exam Narrative Physical Examination: General: Awake, alert, oriented x 3 and cooperative, seated upright in the ED bed, fatigued, mildly tremulous and restless. Skin: Normal color, normal turgor, no icterus, no cyanosis. HEENT: AT/NC, EOMI, PERRLA, moderately dry MM, no carotid bruits or JVD noted. Lungs: CTA bilaterally, moderate effort, mild decrease BL bases, no rales, ronchi or wheezing. Heart: Regular rate and rhythm; no gallop, rub audible. Abdomen: Soft, obese, mild generalized discomfort but no rebound or guarding and more so in the right upper quadrant/epigastric region, ND, hyperactive BS, + Appreciated mild HM. Extremities: No cyanosis, clubbing, or edema. Neurological: Patient awake, alert, oriented as noted, cognitive function intact; pupils equally reactive to light and accommodation, cranial nerves II- XII grossly normal, moving all 4 extremities, no focal deficits, strength moderately globally decreased secondary to acute presentation, mildly tremulous, mild tactile disturbances noted Psychiatric: Affect appears fatigued, no acute evidence of depressive or anxiety feelings but does have underlying history. Results Lab / Micro Data 09/24/22 19:10 09/24/22 19:10 Labs: Laboratory Results - last 24 hr 09/24/22 18:55: Urine Opiates Screen NEGATIVE, Urine Methadone Screen NEGATIVE, Ur Barbiturates Screen NEGATIVE, Ur Phencyclidine Scrn NEGATIVE, Ur Amphetamines Screen NEGATIVE, MDMA (Ecstasy) Screen POSITIVE H, U Benzodiazepines Scrn NEGATIVE, Urine Cocaine Screen NEGATIVE, U Cannabinoids Screen NEGATIVE, Ur Drug Screen Comment 09/24/22 19:10: WBC 7.9, RBC 4.18 L, Hgb 14.4, Hct 41.8, MCV 100.0 H, MCH 34.4 H , MCHC 34.4, RDW Std Deviation 49.2 H, RDW Coeff of Casey 13.4, Plt Count 266, MPV 10.9, Immature Gran % (Auto) 0.100, Neut % (Auto) 52.1, Lymph % (Auto) 36.8, [place] % (Auto) 10.1 H, Eos % (Auto) 0.5, Baso % (Auto) 0.4, Absolute Neuts (auto) 4.1, Absolute Lymphs (auto) 2.92, Nucleated RBC % 0, Serum , Qual NEGATIVE Assessment & Plan Assessment/Plan (1) Alcohol withdrawal: PLAN: Plan The patient is 56 y/o F w/ PMHx: Asthma, Tobacco use, Obesity, HTN, Anxiety and Depression, Allergic rhinitis, EtOH abuse who presents to the [facility] ED on 09/24/22 with history of onset of acute alcohol withdrawal. #1. Acute EtOH Withdrawal: Will admit to medical surgical floor, routine substance abuse admission labs obtained in the ED with noted hypokalemia with supplementation administered in the ED. Given interest in sobriety, will initiate and continue on protocol with taper course of Phenobarbital, as needed gabapentin, Catapres, Bentyl, Vistaril, IV fluids, IV antiemetics, Tylenol as needed for pain. Will consult Case management for assistance for transition to next level of rehabilitation care. Mag, phos pending. Maintain on CIWA protocol concurrently. #2. Hypokalemia: Admission K+ 2.6, magnesium level requested, supplementation given, repeat level in AM. #3. Anxiety and depression: We will continue patient home low-dose alprazolam and citalopram home regimen. Given history certainly would benefit from altered regimen and avoidance of benzodiazepines but this would need to be tapered outpatient. Additionally would benefit from aggressive counseling as likely contributing to her substance abuse. #4. Hypertension: Continue home regimen including valsartan, chlorthalidone, PRN hydralazine. #5. Obesity: Weight loss and lifestyle changes encouraged. #6. Allergic rhinitis: We will continue patient on fexofenadine regimen. #7. Tobacco Abuse: Encouraged cessation, inpatient consultation per RT, NR if desired. Patient is interested in complete tobacco cessation and would like nicotine replacement at her discharge. #8. Chronic asthma: We will maintain on ATC budesonide therapy, as needed albuterol, encourage tobacco cessation. #9. DVT prophylaxis: Low risk. Charges/Coding Visit Charges Inpatient E&M: 00502 Init Hosp L2
[2022-09-24 19:59] LABS: ALB/GLOB Ratio 0.9 RATIO (0.9-2.4); AST(SGOT) 24 U/L (15-37); Alanine Aminotransfer ALT/SGPT 23 U/L (13-56); Albumin, Serum 3.9 g/dL (3.2-5.0); Alkaline Phosphatase 124 U/L (45-117); Anion Gap 10 (5-15); BUN 11 mg/dL (7-18); BUN/Creat Ratio 12.3 RATIO (10-20); Calcium,Total 9.9 mg/dL (8.5-10.1); Chloride 102 mmol/L (98-107); EST Glomerular Filtration Rate 70 mL/min (>60); Est Glom Filt Rate - Afr Amer 84 mL/min (>60); Estimated Creatinine Clearance 74.68 ml/min; Globulin 4.4 g/dL (2.2-4.2); Glucose 101 mg/dL (74-106); Potassium 2.6 mmol/L (3.5-5.1); Protein, Total 8.3 g/dL (6.4-8.2); Sodium Level 139 mmol/L (136-145)
[2022-09-24 20:16] LABS: Magnesium 2.1 mg/dL (1.6-2.6); Phosphorus 2.5 mg/dL (2.5-4.9)
[2022-09-24] MEDS: Potassium Chloride Oral Tablet 20 MEQ 40 MEQ PO (20:16)
[2022-09-24 20:27] VITALS: BP 136/95; PULSE 71; RESP 18; TEMP 36.8; O2SAT 98
[2022-09-24] MEDS: Phenobarbital 32.4 MG Tablet 64.8 MG PO (21:43)
--- NOTE | 2022-09-24 21:47 | CM.ED ---
Social Work SW introduced self and role to patient. Pt is requesting to detox from alcohol. Pt expressed feeling anxious and asked questions about the process. Pt reports she has been drinking for many years and has never detoxed before. SW provided emotional support. Treatment navigator notified of patient's admission. Rosmery Chun ATMOSPHERIC SCIENTIST, [employer] G[employer] SUPERINTENDENT
[2022-09-24 23:27] VITALS: BMI 35.8
[2022-09-24 23:43] VITALS: BP 128/82; PULSE 87; RESP 16; TEMP 36.9; O2SAT 98
[2022-09-24] MEDS: Lactated Ringers 1,000 ML 125 ML IV (23:53)
[2022-09-25] VITALS (8 sets, daily range): BP systolic 108–134; BP diastolic 62–94; PULSE 79–99; RESP 16–20; TEMP 36.6–37.2; O2SAT 95–100
[2022-09-25] MEDS: Phenobarbital 32.4 MG Tablet 64.8 MG PO ×6 (00:49→20:34)
[2022-09-25] MEDS: Budesonide Respules 0.5 MG/2 ML AMPUL.NEB. INHALATION ×2 (07:44→19:30)
[2022-09-25] MEDS: Folic Acid 1 MG Tablet PO (08:17)
[2022-09-25] MEDS: Losartan Potassium 25 MG Tablet PO (08:17)
[2022-09-25] MEDS: Loratadine 10 MG Tablet PO (08:17)
[2022-09-25] MEDS: Multivitamins,Ther W-Minerals Tablet 1 TABLET PO (08:17)
[2022-09-25] MEDS: Citalopram 40 MG TABLET PO (08:17)
[2022-09-25] MEDS: Thiamine Hydrochloride 100 MG Tablet PO (08:17)
[2022-09-25] MEDS: Chlorthalidone 50 MG Tablet 25 MG PO (08:18)
[2022-09-25 10:28] LABS: Anion Gap 8 (5-15); BUN 7 mg/dL (7-18); BUN/Creat Ratio 7.4 RATIO (10-20); Calcium,Total 8.5 mg/dL (8.5-10.1); Chloride 104 mmol/L (98-107); Creatinine, Serum 0.94 mg/dL (0.55-1.02); EST Glomerular Filtration Rate 66 mL/min (>60); Est Glom Filt Rate - Afr Amer 79 mL/min (>60); Glucose 115 mg/dL (74-106); Potassium 2.7 mmol/L (3.5-5.1); Sodium Level 139 mmol/L (136-145)
--- NOTE | 2022-09-25 10:41 | PN_ITS ---
Subjective Subjective Patient seen and examined. She had no complaints. She is being managed for acute alcohol withdrawal. Objective Data Objective Data Vital Signs: Vital Signs Temp Pulse Resp BP Pulse Ox O2 Del Method 97.9 F 86 16 120/89 H 100 Room Air 09/25/22 09:13 09/25/22 09:13 09/25/22 09:13 09/25/22 09:13 09/25/22 09:13 09/25/22 09:13 Oxygen Delivery Method Room Air Weight: 242 lb 8.136 oz Body Mass Index (BMI) 35.8 Intake & Output: Intake and Output for Last 24 Hours 09/23/22 09/24/22 09/25/22 23:59 23:59 23:59 Intake Total 2300 / 2300 Balance 2300 / 2300 Lab / Micro Data 09/24/22 19:10 09/25/22 09:17 Labs: Laboratory Results - last 24 hr 09/24/22 18:55: Urine Opiates Screen NEGATIVE, Urine Methadone Screen NEGATIVE, Ur Barbiturates Screen NEGATIVE, Ur Phencyclidine Scrn NEGATIVE, Ur Amphetamines Screen NEGATIVE, MDMA (Ecstasy) Screen POSITIVE H, U Benzodiazepines Scrn NEGATIVE, Urine Cocaine Screen NEGATIVE, U Cannabinoids Screen NEGATIVE, Ur Drug Screen Comment 09/24/22 19:10: WBC 7.9, RBC 4.18 L, Hgb 14.4, Hct 41.8, MCV 100.0 H, MCH 34.4 H , MCHC 34.4, RDW Std Deviation 49.2 H, RDW Coeff of Casey 13.4, Plt Count 266, MPV 10.9, Immature Gran % (Auto) 0.100, Neut % (Auto) 52.1, Lymph % (Auto) 36.8, Bacon % (Auto) 10.1 H, Eos % (Auto) 0.5, Baso % (Auto) 0.4, Absolute Neuts (auto) 4.1, Absolute Lymphs (auto) 2.92, Nucleated RBC % 0, Sodium 139, Potassium 2.6 L*, Chloride 102, Carbon Dioxide 27.0, Anion Gap 10, BUN 11, Creatinine 0.90, Estim Creat Clear Calc 74.68, Est GFR (MDRD) Af Amer 84, Est GFR (MDRD) Non-Af 70, BUN/Creatinine Ratio 12.3, Glucose 101, Calcium 9.9, Phosphorus 2.5, Magnesium 2.1, Total Bilirubin 0.40, AST 24, ALT 23, Alkaline Phosphatase 124 H, Total Protein 8.3 H, Albumin 3.9, Globulin 4.4 H, Albumin/Globulin Ratio 0.9, Serum , Qual NEGATIVE, Ethyl Alcohol 68.0 09/25/22 09:17: Sodium 139, Potassium 2.7 L*, Chloride 104, Carbon Dioxide 27.0, Anion Gap 8, BUN 7, Creatinine 0.94, Estim Creat Clear Calc 71.50, Est GFR (MDRD) Af Amer 79, Est GFR (MDRD) Non-Af 66, BUN/Creatinine Ratio 7.4 L, Glucose 115 H, Calcium 8.5 Physical Exam Const alert, oriented x3 and no apparent distress Constitutional Narrative: obese HEENT normocephalic and moist oral mucous membranes Eyes PERRL and EOMs intact bilaterally Neck no lymphadenopathy and supple Lymph Lymphatic: no lymphadenopathy noted and no lymphedema noted Resp normal respiratory effort, normal air movement and clear to auscultation bilat erally Cardio regular rate, regular rhythm, S1 normal heart sound, S2 normal heart sound and no murmurs GI normal to inspection, nondistended, normoactive bowel sounds, soft to palpation, non-tender and non-distended Extremity normal capillary refill, no clubbing, cyanosis or edema and no calf tenderness Skin General Skin Exam: no breakdown Neuro CN's II-XII intact bilaterally, no focal motor deficits, no sensory deficits noted and deep tendon reflexes 2+ bilaterally Motor Exam: strength 5/5 throughout Psych thought process normal, cooperative and affect normal Appearance: appropriate Assessment & Plan Assessment/Plan (1) Alcohol withdrawal: (2) Acute hypokalemia: PLAN: Plan #Acute alcohol withdrawal * on alcohol withdrawal protocol with phenobarbital * thiamine, folic acid and multivite * adjunctive meds for symptomatic relief * #Hypokalemia * potassium is 2.7. Will replace and trend. * check magnesium * #Hypertension; on valsartan and clorthalidone. #Asthma: not in exacerbation. on breathing treatment with bronchodilators #Anxiety and depression: on xanax and bupropion as well as citalopram DVT prophylaxis: low risk, encourage ambulation Charges/Coding Visit Charges Inpatient E&M: 09274 [facility] Hosp L3
[2022-09-25] MEDS: Albuterol 2.5 MG/3 ML VIAL.NEB. INHALATION (10:57)
[2022-09-25] MEDS: LORazepam 1 MG Tablet 2 MG PO (10:58)
[2022-09-25 11:16] LABS: Magnesium 1.7 mg/dL (1.6-2.6)
[2022-09-25] MEDS: Potassium Chloride 10mEq/100mL 10 MEQ/100 ML IV.SOLN. 100 MEQ IV BOLUS ×4 (11:28→14:53)
[2022-09-25] MEDS: 0.9% Saline Lock 10 ML Syringe IV (11:29)
[2022-09-25] MEDS: Potassium Chloride Oral Tablet 20 MEQ 40 MEQ PO (11:29)
[2022-09-25 17:37] LABS: Anion Gap 3 (5-15); BUN 11 mg/dL (7-18); BUN/Creat Ratio 11.1 RATIO (10-20); Calcium,Total 8.4 mg/dL (8.5-10.1); Chloride 106 mmol/L (98-107); Creatinine, Serum 0.99 mg/dL (0.55-1.02); EST Glomerular Filtration Rate 62 mL/min (>60); Est Glom Filt Rate - Afr Amer 75 mL/min (>60); Estimated Creatinine Clearance 67.89 ml/min; Glucose 120 mg/dL (74-106); Potassium 3.5 mmol/L (3.5-5.1); Sodium Level 139 mmol/L (136-145)
[2022-09-26] MEDS: Phenobarbital 32.4 MG Tablet 64.8 MG PO ×6 (01:12→20:00)
[2022-09-26 03:00] VITALS: BP 113/69; PULSE 80; RESP 16; TEMP 37.1; O2SAT 98
[2022-09-26 06:47] LABS: Anion Gap 6 (5-15); BUN 10 mg/dL (7-18); BUN/Creat Ratio 13.6 RATIO (10-20); Calcium,Total 7.9 mg/dL (8.5-10.1); Chloride 104 mmol/L (98-107); Creatinine, Serum 0.74 mg/dL (0.55-1.02); EST Glomerular Filtration Rate 87 mL/min (>60); Est Glom Filt Rate - Afr Amer 106 mL/min (>60); Estimated Creatinine Clearance 90.83 ml/min; Glucose 122 mg/dL (74-106); Potassium 3.2 mmol/L (3.5-5.1); Sodium Level 138 mmol/L (136-145)
[2022-09-26 07:19] VITALS: PULSE 84; RESP 19; O2SAT 94
[2022-09-26] MEDS: Albuterol 2.5 MG/3 ML VIAL.NEB. INHALATION (07:19)
[2022-09-26] MEDS: Budesonide Respules 0.5 MG/2 ML AMPUL.NEB. INHALATION ×2 (07:19→19:29)
[2022-09-26 07:43] VITALS: BP 106/80; PULSE 86; RESP 18; TEMP 36.7; O2SAT 99
[2022-09-26] MEDS: Potassium Chloride Oral Tablet 20 MEQ 40 MEQ PO (07:46)
[2022-09-26] MEDS: Thiamine Hydrochloride 100 MG Tablet PO (07:46)
[2022-09-26] MEDS: Folic Acid 1 MG Tablet PO (07:46)
[2022-09-26] MEDS: Multivitamins,Ther W-Minerals Tablet 1 TABLET PO (07:46)
[2022-09-26] MEDS: Chlorthalidone 50 MG Tablet 25 MG PO (07:47)
[2022-09-26] MEDS: Loratadine 10 MG Tablet PO (07:47)
[2022-09-26] MEDS: Losartan Potassium 25 MG Tablet PO (07:47)
[2022-09-26] MEDS: Menthol/Lanolin/Calamine/Znox 113 GM Tube 1 APPLIC TOPICAL ×2 (07:48→20:02)
[2022-09-26] MEDS: Citalopram 40 MG TABLET PO (07:48)
--- NOTE | 2022-09-26 09:21 | PN_ITS ---
Subjective Subjective Patient seen and examined. She had no complaints and said she is feeling better. Review of systems is otherwise negative. Objective Data Objective Data Vital Signs: Vital Signs Temp Pulse Resp BP Pulse Ox O2 Del Method 98.0 F 86 18 106/80 99 Room Air 09/26/22 07:43 09/26/22 07:43 09/26/22 07:43 09/26/22 07:43 09/26/22 07:43 09/26/22 07:43 Oxygen Delivery Method Room Air Weight: 242 lb 8.136 oz Body Mass Index (BMI) 35.8 Intake & Output: Intake and Output for Last 24 Hours 09/24/22 09/25/22 09/26/22 23:59 23:59 23:59 Intake Total 4050 / 4410 360 / 360 Balance 4050 / 4410 360 / 360 Lab / Micro Data 09/24/22 19:10 09/26/22 06:18 Labs: Laboratory Results - last 24 hr 09/25/22 09:17: Sodium 139, Potassium 2.7 L*, Chloride 104, Carbon Dioxide 27.0, Anion Gap 8, BUN 7, Creatinine 0.94, Estim Creat Clear Calc 71.50, Est GFR (MDRD) Af Amer 79, Est GFR (MDRD) Non-Af 66, BUN/Creatinine Ratio 7.4 L, Glucose 115 H, Calcium 8.5, Magnesium 1.7 09/25/22 17:16: Sodium 139, Potassium 3.5, Chloride 106, Carbon Dioxide 30.0, Anion Gap 3 L, BUN 11, Creatinine 0.99, Estim Creat Clear Calc 67.89, Est GFR (MDRD) Af Amer 75, Est GFR (MDRD) Non-Af 62, BUN/Creatinine Ratio 11.1, Glucose 120 H, Calcium 8.4 L 09/26/22 06:18: Sodium 138, Potassium 3.2 L, Chloride 104, Carbon Dioxide 28.0, Anion Gap 6, BUN 10, Creatinine 0.74, Estim Creat Clear Calc 90.83, Est GFR (MDRD) Af Amer 106, Est GFR (MDRD) Non-Af 87, BUN/Creatinine Ratio 13.6, Glucose 122 H, Calcium 7.9 L Physical Exam Const alert, oriented x3 and no apparent distress Constitutional Narrative: obese HEENT normocephalic and moist oral mucous membranes Eyes PERRL and EOMs intact bilaterally Neck no lymphadenopathy and supple Lymph Lymphatic: no lymphadenopathy noted and no lymphedema noted Resp normal respiratory effort, normal air movement and clear to auscultation bi laterally Cardio regular rate, regular rhythm, S1 normal heart sound, S2 normal heart sound and no murmurs GI normal to inspection, nondistended, normoactive bowel sounds, soft to palpation, non-tender and non-distended Extremity normal capillary refill, no clubbing, cyanosis or edema and no calf tenderness Skin General Skin Exam: no breakdown Neuro CN's II-XII intact bilaterally, no focal motor deficits, no sensory deficits noted and deep tendon reflexes 2+ bilaterally Motor Exam: strength 5/5 throughout Psych thought process normal, cooperative and affect normal Appearance: appropriate Assessment & Plan Assessment/Plan (1) Alcohol withdrawal: (2) Acute hypokalemia: PLAN: Plan #Acute alcohol withdrawal * on alcohol withdrawal protocol with phenobarbital * thiamine, folic acid and multivite * adjunctive meds for symptomatic relief * #Hypokalemia * potassium is up to 3.2 today. Will replace and trend. * Magnesium was 1.7 * #Hypertension; on valsartan and clorthalidone. #Asthma: not in exacerbation. on breathing treatment with bronchodilators #Anxiety and depression: on xanax and bupropion as well as citalopram DVT prophylaxis: low risk, encourage ambulation Disposition: anticipate dc tomorrow if she is medically stable. Charges/Coding Visit Charges Inpatient E&M: 85569 [facility] Hosp L2
[2022-09-26 16:22] VITALS: BP 118/90; PULSE 89; RESP 18; TEMP 36.3; O2SAT 99
[2022-09-26 19:29] VITALS: PULSE 83; RESP 16
[2022-09-26] MEDS: traZODone 100 MG Tablet PO (20:00)
[2022-09-26 20:04] VITALS: BP 118/82; PULSE 86; RESP 16; TEMP 36.6; O2SAT 97
[2022-09-26] MEDS: Senna Tablet 2 TABLET PO (20:24)
[2022-09-26] MEDS: Ondansetron 8 MG Tablet PO (20:24)
[2022-09-27] MEDS: Phenobarbital 32.4 MG Tablet 64.8 MG PO ×3 (00:02→10:42)
[2022-09-27 00:07] VITALS: BP 105/73; PULSE 85; RESP 16; TEMP 36.4; O2SAT 95
[2022-09-27 05:15] VITALS: BP 115/77; PULSE 80; RESP 16; TEMP 36.5; O2SAT 100
[2022-09-27 06:39] LABS: Anion Gap 6 (5-15); BUN 15 mg/dL (7-18); BUN/Creat Ratio 18.8 RATIO (10-20); Calcium,Total 8.3 mg/dL (8.5-10.1); Chloride 105 mmol/L (98-107); EST Glomerular Filtration Rate 79 mL/min (>60); Est Glom Filt Rate - Afr Amer 96 mL/min (>60); Estimated Creatinine Clearance 84.01 ml/min; Glucose 116 mg/dL (74-106); Potassium 3.1 mmol/L (3.5-5.1); Sodium Level 137 mmol/L (136-145)
[2022-09-27 07:22] VITALS: PULSE 71; RESP 17; O2SAT 99
[2022-09-27] MEDS: Budesonide Respules 0.5 MG/2 ML AMPUL.NEB. INHALATION (07:22)
--- NOTE | 2022-09-27 08:09 | PN.HOSP_ITS ---
Reason for Visit Reason for Visit: Diagnoses Hypokalemia (09/24/22) Alcohol use, unspecified with withdrawal, unspecified (09/24/22) Subjective Subjective Feels well anxious to go home. Objective Data Objective Data Vital Signs: Vital Signs Temp Pulse Resp BP Pulse Ox O2 Del Method 36.5 C L 71 17 115/77 99 Room Air 09/27/22 05:15 09/27/22 07:22 09/27/22 07:22 09/27/22 05:15 09/27/22 07:22 09/27/22 07:22 Oxygen Delivery Method Room Air Weight: 110 kg Body Mass Index (BMI) 35.8 Intake & Output: Intake and Output for Last 24 Hours 09/25/22 09/26/22 09/27/22 23:59 23:59 23:59 Intake Total 4050 / 4410 360 / 360 Balance 4050 / 4410 360 / 360 Lab / Micro Data 09/24/22 19:10 09/27/22 05:43 Labs: Laboratory Results - last 24 hr 09/27/22 05:43: Sodium 137, Potassium 3.1 L, Chloride 105, Carbon Dioxide 26.0, Anion Gap 6, BUN 15, Creatinine 0.80, Estim Creat Clear Calc 84.01, Est GFR (MDRD) Af Amer 96, Est GFR (MDRD) Non-Af 79, BUN/Creatinine Ratio 18.8, Glucose 116 H, Calcium 8.3 L Physical Exam Const alert and no apparent distress Constitutional Narrative: up in chair. pleasant. non-toxic. Psych affect normal Assessment & Plan Assessment/Plan (1) Alcohol withdrawal: QUALIFIERS: Complication of substance-induced condition: uncomplic ated Qualified Code(s): F10.930 - Alcohol use, unspecified with withdrawal, uncomplicated PLAN: alcohol withdrawal protocol with phenobarbital. Pt reports daily drinking, but 2 drinks during the week, then more heavily over the weekend. outpt follow up. (2) Acute hypokalemia: PLAN: Likely 2/2 to chlorthalidone. Ongoing. Replace. PLAN: Plan Chronic conditions: * Hypertension; on valsartan and dc clorthalidone given hypokalemia * Asthma: not in exacerbation. on breathing treatment with bronchodilators * Anxiety and depression: on bupropion as well as citalopram. I personally revie wed [facility]. No active Rx for alprazolam. * tobacco abuse: pt wants to quit smoking. has triend Chantix in the past, but it did not work for her. She expresses preference for nicotine patch. DVT prophylaxis: low risk, encourage ambulation
[2022-09-27 08:17] VITALS: BP 112/60; PULSE 83; RESP 16; TEMP 36.7; O2SAT 97
[2022-09-27] MEDS: Multivitamins,Ther W-Minerals Tablet 1 TABLET PO (08:25)
[2022-09-27] MEDS: Thiamine Hydrochloride 100 MG Tablet PO (08:25)
[2022-09-27] MEDS: Menthol/Lanolin/Calamine/Znox 113 GM Tube 1 APPLIC TOPICAL (08:26)
[2022-09-27] MEDS: Folic Acid 1 MG Tablet PO (08:26)
[2022-09-27] MEDS: Acetaminophen 325 MG Tablet 650 MG PO (09:42)
[2022-09-27] MEDS: Losartan Potassium 25 MG Tablet PO (09:43)
[2022-09-27] MEDS: Citalopram 40 MG TABLET PO (09:43)
[2022-09-27] MEDS: Loratadine 10 MG Tablet PO (09:43)
--- NOTE | 2022-09-27 11:22 | ADDICTION ---
This abstract writer met with PT to conduct ASAM, MSE, AUDIT assessments and to plan for d/c. PT A+Ox4 and participated actively. All assessments completed and placed in PT's chart. PT plans to f/u with [facility] for follow-up treatment services. PT did not indicate a need for transportation post d/c from [facility].
--- NOTE | 2022-09-27 11:23 | ADDICTION ---
Paper assessment were completed over the weekend by confidential investigator TW.
--- NOTE | 2022-09-27 11:40 | DCINST_ITS ---
Discharge Instructions Diet Discharge Diet: No restrictions Follow Up Care Test Results: Test results from this visit will be discussed in further detail at your follow- up appointment, if applicable. Discharge Plan Admission Admit Date/Time: 09/24/22 19:34 Primary Reason for Your Visit: alcohol withdrawal. Attending Provider: Ruiz Amador Primary Care Provider: Vitor Hinton Consulting Providers: Juana Molina; Gail Pritchard Instructions Additional Instructions / Restrictions: [facility] Discharge Orders/Prescriptions Prescriptions: New nicotine 21-14-7 mg/24 hr patch, TD daily, sequential See Rx Instructions .ROUTE .COMPLEX Qty: 56 0RF Rx Instructions: apply 1-21 mg NICOTINE PATCH daily for 28 days; follow with 1-14 mg PATCH daily for 14 days, then 1-7mg PATCH daily for 14 days multivitamin Tablet 1 tab PO DAILY Qty: 30 0RF Continued citalopram 40 MG tablet 40 mg PO DAILY cholecalciferol (vitamin D3) 5,000 UNIT tablet,disintegrating 5,000 unit PO DAILY cyclobenzaprine 10 MG tablet 10 mg PO TID PRN (Reason: Spasms) fexofenadine 180 MG tablet 180 mg PO DAILY valsartan 80 MG tablet 80 mg PO DAILY bupropion HCl 150 MG tablet extended release 24 hr 150 mg PO DAILY diclofenac sodium 100 GM gel 1 applic TP QHS Discontinued chlorthalidone 25 MG tablet 25 mg PO DAILY alprazolam 0.5 MG tablet 0.5 mg PO BID PRN PRN (Reason: Anxiety) Referrals / Follow Up: Vitor Hinton DO [Primary Care Provider] - Within 2 Weeks Disposition Disposition (needs filled in before D/C Order can be placed): Home, Self Care
[2022-09-27] MEDS: Potassium Chloride Oral Tablet 20 MEQ 60 MEQ PO (11:41)
--- NOTE | 2022-09-27 11:44 | DS.PCM_ITS ---
Providers Date of Admission: 09/24/22 Primary Care Physician: Dr. Vitor Hinton, DO Reason For Visit: ETOH ABUSE/WITHDRAWL Diagnosis Discharge Diagnosis (1) Alcohol withdrawal: Status: Acute Code(s): F10.939 - Alcohol use, unspecified with withdrawal, unspecified Qualifiers: Complication of substance-induced condition: uncomplicated Qualified Code(s): F10.930 - Alcohol use, unspecified with withdrawal, uncomplicated Plan: alcohol withdrawal protocol with phenobarbital. Pt reports daily drinking, but 2 drinks during the week, then more heavily over the weekend. outpt follow up. (2) Acute hypokalemia: Status: Acute Code(s): E87.6 - Hypokalemia Plan: Likely 2/2 to chlorthalidone. Ongoing. Replace. Plan Chronic conditions: * Hypertension; on valsartan and dc clorthalidone given hypokalemia * Asthma: not in exacerbation. on breathing treatment with bronchodilators * Anxiety and depression: on bupropion as well as citalopram. I personally reviewed [facility]. No active Rx for alprazolam. * tobacco abuse: pt wants to quit smoking. has triend Chantix in the past, but it did not work for her. She expresses preference for nicotine patch. DVT prophylaxis: low risk, encourage ambulation Medications at Discharge Home Medications citalopram 40 mg tablet 40 mg PO DAILY depression 10/14/16 cholecalciferol (vitamin D3) 125 mcg (5,000 unit) disintegrating tablet 5,000 unit PO DAILY supplement 05/02/17 bupropion HCl 150 mg 24 hr tablet, extended release 150 mg PO DAILY smoking 02/14/20 cyclobenzaprine 10 mg tablet 10 mg PO TID PRN Spasms 02/14/20 diclofenac sodium 1 % topical gel 1 applic TP QHS arthritis 02/14/20 fexofenadine 180 mg tablet 180 mg PO DAILY allergies 02/14/20 valsartan 80 mg tablet 80 mg PO DAILY bp 02/14/20 multivitamin 1 tab PO DAILY #30 tabs 09/27/22 nicotine 21mg/24hr-14mg/24hr-7mg/24hr daily transderm patches,sequentl See Rx Instructions transdermal .COMPLEX #56 patches 09/27/22 Hospital Course Operations None Procedures None Summary of Care Provided Minutes Spent on Discharge: 35 Weight / BMI Weight Weight: 110 kg Body Mass Index (BMI) 35.8 ABG / Lab / Microbiology Data 09/24/22 19:10 09/27/22 05:43 Laboratory: Laboratory Results - last 24 hr 09/27/22 05:43: Sodium 137, Potassium 3.1 L, Chloride 105, Carbon Dioxide 26.0, Anion Gap 6, BUN 15, Creatinine 0.80, Estim Creat Clear Calc 84.01, Est GFR (MDRD) Af Amer 96, Est GFR (MDRD) Non-Af 79, BUN/Creatinine Ratio 18.8, Glucose 116 H, Calcium 8.3 L D/C Instructions Discharge Diet: No restrictions Meaningful Use Info Meaningful Use Diagnoses (Choose all that apply): None applicable Discharge Plan Admission Admit Date/Time: 09/24/22 19:34 Primary Reason for Your Visit: alcohol withdrawal. Attending Provider: Ruiz Amador Primary Care Provider: Vitor Hinton Consulting Providers: Juana Molina; Gail Pritchard Instructions Additional Instructions / Restrictions: Follow up with [facility]. Discharge Orders/Prescriptions Prescriptions: New nicotine 21-14-7 mg/24 hr patch, TD daily, sequential See Rx Instructions .ROUTE .COMPLEX Qty: 56 0RF Rx Instructions: apply 1-21 mg NICOTINE PATCH daily for 28 days; follow with 1-14 mg PATCH daily for 14 days, then 1-7mg PATCH daily for 14 days multivitamin Tablet 1 tab PO DAILY Qty: 30 0RF Continued citalopram 40 MG tablet 40 mg PO DAILY cholecalciferol (vitamin D3) 5,000 UNIT tablet,disintegrating 5,000 unit PO DAILY cyclobenzaprine 10 MG tablet 10 mg PO TID PRN (Reason: Spasms) fexofenadine 180 MG tablet 180 mg PO DAILY valsartan 80 MG tablet 80 mg PO DAILY bupropion HCl 150 MG tablet extended release 24 hr 150 mg PO DAILY diclofenac sodium 100 GM gel 1 applic TP QHS Discontinued chlorthalidone 25 MG tablet 25 mg PO DAILY alprazolam 0.5 MG tablet 0.5 mg PO BID PRN PRN (Reason: Anxiety) Referrals / Follow Up: Vitor Hinton DO [Primary Care Provider] - Within 2 Weeks Disposition Disposition (needs filled in before D/C Order can be placed): Home, Self Care Charges/Coding Visit Charges Inpatient E&M: 35632 Disch Hosp >30min
[2022-09-27 12:32] VITALS: BP 120/68; PULSE 88; RESP 16; TEMP 36.7; O2SAT 97
--- NOTE | 2022-09-27 13:17 | PHA.DC.MC.R ---
Pharmacy [facility] has performed discharge medication reconciliation and counseling for this patient. 1. NICOTINE PATCH 21MG TD DAILY 2. MULTIVITAMIN 1T PO DAILYCM The patient's discharge medication list was reviewed for discrepancies and discrepancies were resolved. The patient was counseled on the following discharge medications and changes in medications for homegoing were reviewed. The Reason for Use, instructions for use, and potential side effects were reviewed for all new medications. The patient's questions regarding all of their medications were answered. The patient was able to verbally demonstrate an understanding of their discharge medications. Patient counseled by student life [place]. Medications at Discharge Home Medications citalopram 40 mg tablet 40 mg PO DAILY depression 10/14/16 cholecalciferol (vitamin D3) 125 mcg (5,000 unit) disintegrating tablet 5,000 unit PO DAILY supplement 05/02/17 bupropion HCl 150 mg 24 hr tablet, extended release 150 mg PO DAILY smoking 02/14/20 cyclobenzaprine 10 mg tablet 10 mg PO TID PRN Spasms 02/14/20 diclofenac sodium 1 % topical gel 1 applic TP QHS arthritis 02/14/20 fexofenadine 180 mg tablet 180 mg PO DAILY allergies 02/14/20 valsartan 80 mg tablet 80 mg PO DAILY bp 02/14/20 multivitamin 1 tab PO DAILY #30 tabs 09/27/22 nicotine 21mg/24hr-14mg/24hr-7mg/24hr daily transderm patches,sequentl See Rx Instructions transdermal .COMPLEX #56 patches 09/27/22
== END 2022-09-27 13:00 | disposition home or self-care (01) | DRG 772 ==
LOC: ED 19:53 → MS3 20:12
PROVIDERS: Physician Assistant; Student in an Organized Health Care Education/Training Program; Admitting Provider Family Medicine; Emergency Provider Emergency Medicine; PCP Student in an Organized Health Care Education/Training Program
DX: F10.139 Alcohol abuse with withdrawal, unspecified (principal); E66.9 Obesity, unspecified; E87.6 Hypokalemia; I10 Essential (primary) hypertension; J45.909 Unspecified asthma, uncomplicated; F41.9 Anxiety disorder, unspecified; F17.210 Nicotine dependence, cigarettes, uncomplicated; F32.A Depression, unspecified; T50.2X5A Adverse effect of carbonic-anhydrase inhibitors, benzothiadiazides and other diuretics, initial encounter; Z68.35 Body mass index [BMI] 35.0-35.9, adult; Y90.3 Blood alcohol level of 60-79 mg/100 ml; Z79.899 Other long term (current) drug therapy
CPT/HCPCS: 36415; 80048; 80053; 80307; 82077; 83735; 84100; 84703; 85025; 94640; 99283; 99406; J7120; A4216